=== PATIENT | female | born 1995 | race Caucasian/White ===

== ENCOUNTER 2019-12-01 11:00 | Day surgery (SDC) | payer OTHER ==
[2019-12-01] MEDS ORDERED: Lidocaine 2% 5 ML SDV INJECT ONE (12:00)
[2019-12-01] MEDS ORDERED: Iopamidol 200-M 10 ML vial ITHECAL ONE (12:00)
[2019-12-01] MEDS ORDERED: Ropivacaine 0.5% 5 MG/ML 30 ML SDV INJECT ONE (12:00)
[2019-12-01] MEDS ORDERED: Betamethasone Acetate/Betamethasone Sod Phosphate 30 MG/5 ML MDV EPIDUR ONE (12:00)
--- NOTE | 2019-12-01 17:12 | OR ---
SURGEON: Yanely Neff D.O. DATE OF PROCEDURE: 12/01/2019 PRIMARY SURGEON: Yanely Neff DO ASSISTANTS: OR staff present: 1. Braulio Lundberg RN. 2. Carlos Black RN. 3. Carlos Christie, RT. WOUND CLASS: I. PREOPERATIVE DIAGNOSES: 1. Lumbar radiculopathy. 2. Failed back surgery syndrome. 3. Chronic low back pain with right lower extremity radiculopathy. POSTOPERATIVE DIAGNOSES: 1. Lumbar radiculopathy. 2. Failed back surgery syndrome. 3. Chronic low back pain with right lower extremity radiculopathy. PROCEDURES PERFORMED: 1. Right transforaminal epidural steroid injection at S1. 2. Right transforaminal epidural steroid injection at S2. 3. Fluoroscopic guidance for needle placement. 4. Local with oral Valium for sedation. SCREENING QUESTIONS: The patient answered "no" to all of the following questions: 1. Are you allergic to iodine, Betadine or latex? 2. Do you have a bleeding disorder? 3. Do you have any joint replacements, heart valve replacements, or a pacemaker? 4. Are you allergic to anti-inflammatories or blood thinners? 5. Do you have any current local or systemic infections? MEDICAL NECESSITY: This is a patient with a history of chronic low back pain and lower extremity radicular pain in the above dermatomal pattern that comes in for the above diagnostic and therapeutic procedure. Pertinent positives and negatives for this suspected disease process along with the diagnostic findings and testing are in the patient's history and physical exam. The most salient feature includes radicular pain in the above dermatomal pattern. The patient had failed attempts at conservative therapy including physical therapy, nonsteroidal anti- inflammatory drugs, and other medications. No contraindications to perform this procedure including medical, no bleeding disorders or infections, no psychological, no antisocial personality disorder or active addiction disorder. There are no work-related issues, and, in general, the patient does not have any history of multiple prior interventions, surgeries or nerve blocks which have failed to return the patient to function. The patient's other symptoms to be treated include numbness, paresthesia, dysesthesia or hypoesthesia referred into the left lower extremity or any weakness in the involved myotome. This procedure is being performed in accordance with national guidelines as written by the [employer] (QIAN). DESCRIPTION OF PROCEDURE: The patient had the procedure thoroughly explained including risks, benefits and alternatives. Consent was signed in my clinic indicating understanding and willingness to proceed. The patient presented to [facility] [place] where the patient was escorted to the dressing room to disrobe and change into a hospital gown. Preoperative vital signs were taken and stable. The patient reported that Valium was taken prior to the procedure. The patient was brought to the procedure room and placed in the prone position on the table. A pillow was placed under the abdomen in order to flatten the lumbar lordosis. The back was prepped with ChloraPrep and sterilely draped. All personnel in the operating room were dressed in appropriate attire including surgical scrubs, head and shoe covers. This was to ensure sterility while in the treatment room. During the time fluoroscopy was in use, all personnel in the operating room wore lead cao with thyroid collars. Sterile technique was used during the procedure. The fluoroscope was placed for the right S1 and right S2 transforaminal epidural steroid injection. There was no sign of infection at the skin site for needle insertion. The skin was anesthetized with 2% lidocaine with a 27 gauge 1-1/2 inch needle. Then, a 22 gauge 3-1/2 inch spinal needle, advanced to the right S1 and right S2. Under direct fluoroscopic guidance needle position was verified in three views; AP, oblique and lateral, with 0.2 cubic centimeters increments of Isovue-200 dye. No intravascular flow pattern was observed under live fluoroscopy. Then 12 milligrams of Celestone was slowly injected after negative aspiration of heme, cerebrospinal fluid and no paresthesias were noted. The needle was cleared prior to removal from the skin. No adverse reactions were noted. The patient was brought to the recovery room awake and in good condition by my staff. The patient was monitored and discharge instructions were given after a brief stay in the recovery area. Both oral and written discharge and follow up instructions were given. The patient will follow up in the clinic in 3-4 weeks post procedure to evaluate the efficacy. The patient verbalized understanding including understanding of those signs and symptoms that would require emergency care and knows how to contact the office if there are any problems or questions in the meantime. PREOPERATIVE PAIN: 5/10. POSTOPERATIVE PAIN: 0/10. FOLLOWUP: In the Pain Clinic in 1 month. HOGLCHR / MODL /[id number]
== END 2019-12-01 13:09 ==
LOC: MW.SDS 11:00
PROVIDERS: ATTEND Anesthesiology
DX: M96.1 Postlaminectomy syndrome, not elsewhere classified (principal); G89.29 Other chronic pain; M47.26 Other spondylosis with radiculopathy, lumbar region; M51.16 Intervertebral disc disorders with radiculopathy, lumbar region; Z88.0 Allergy status to penicillin; Z88.2 Allergy status to sulfonamides
CPT/HCPCS: J0702; J2001; J2795; Q9966

== ENCOUNTER 2020-03-31 11:00 | Day surgery (SDC) | payer OTHER ==
[~2020-03-31 11:00] MED LIST: Betamethasone Acetate/Betamethasone Sod Phosphate 30 MG/5 ML MDV EPIDUR ONE; Iopamidol 200-M 10 ML vial ITHECAL ONE; Lidocaine 2% 5 ML SDV INJECT ONE; Ropivacaine 0.5% 5 MG/ML 30 ML SDV INJECT ONE
[2020-03-31] MEDS ORDERED: Iopamidol 200-M 10 ML vial ITHECAL ONE (12:00)
[2020-03-31] MEDS ORDERED: Lidocaine 2% 5 ML SDV INJECT ONE (12:00)
[2020-03-31] MEDS ORDERED: Betamethasone Acetate/Betamethasone Sod Phosphate 30 MG/5 ML MDV EPIDUR ONE (12:00)
[2020-03-31] MEDS ORDERED: Ropivacaine 0.5% 5 MG/ML 30 ML SDV INJECT ONE (12:00)
--- NOTE | 2020-03-31 19:22 | OR ---
SURGEON: Yanely Neff D.O. DATE OF PROCEDURE: 03/31/2020 PRIMARY SURGEON: Yanely Neff DO ASSISTANTS: OR staff present: 1. Kelly Watters RN. 2. Carlos Black RN. 3. Braulio Hdez. WOUND CLASS: I. PREOPERATIVE DIAGNOSIS: 1. Lumbar degenerative disk disease L5-S1 2. Lumbar spondylosis. 3. Right S1 radiculopathy. 4. Lumbar herniated disk, L5-S1. POSTOPERATIVE DIAGNOSES: 1. Lumbar degenerative disk disease L5-S1. 2. Lumbar spondylosis. 3. Right S1 radiculopathy. 4. Lumbar herniated disk, L5-S1. PROCEDURES PERFORMED: 1. Right S1 transforaminal epidural steroid injection. 2. Fluoroscopic guidance for needle placement. 3. Local with oral Valium for sedation. SCREENING QUESTIONS: The patient answered "no" to all of the following questions: 1. Are you allergic to iodine, Betadine or latex? 2. Do you have a bleeding disorder? 3. Do you have any joint replacements, heart valve replacements, or a pacemaker? 4. Are you allergic to anti-inflammatories or blood thinners? 5. Do you have any current local or systemic infections? DESCRIPTION OF PROCEDURE: The patient had the procedure thoroughly explained including risks, benefits and alternatives. Consent was signed in my clinic indicating understanding and willingness to proceed. The patient presented to [facility] [place] where the patient was escorted to the dressing room to disrobe and change into a hospital gown. Preoperative vital signs were taken and stable. The patient reported that Valium was taken prior to the procedure. The patient was brought to the procedure room and placed in the prone position on the table. A pillow was placed under the abdomen in order to flatten the lumbar lordosis. The back was prepped with ChloraPrep and sterilely draped. All personnel in the operating room were dressed in appropriate attire including surgical scrubs, head and shoe covers. This was to ensure sterility while in the treatment room. During the time fluoroscopy was in use, all personnel in the operating room wore lead cao with thyroid collars. Sterile technique was used during the procedure. The fluoroscope was placed for the right S1 transforaminal epidural steroid injection. There was no sign of infection at the skin site for needle insertion. The skin was anesthetized with 2% lidocaine with a 27 gauge 1-1/2 inch needle. Then, a 22 gauge 3-1/2 inch spinal needle, advanced to the right S1. Under direct fluoroscopic guidance needle position was verified in three views; AP, oblique and lateral, with 0.2 cubic centimeters increments of Isovue- 200 dye. No intravascular flow pattern was observed under live fluoroscopy. Then a misture of local and12 milligrams of Celestone was slowly injected after negative aspiration of heme, cerebrospinal fluid and no paresthesias were noted. The needle was cleared prior to removal from the skin. No adverse reactions were noted. The patient was brought to the recovery room awake and in good condition by my staff. The patient was monitored and discharge instructions were given after a brief stay in the recovery area. Both oral and written discharge and follow up instructions were given. The patient will follow up in the clinic in 3-4 weeks post procedure to evaluate the efficacy. The patient verbalized understanding including understanding of those signs and symptoms that would require emergency care and knows how to contact the office if there are any problems or questions in the meantime. PREOPERATIVE PAIN: 5/10. POSTOPERATIVE PAIN: 0/10. FOLLOWUP: In the Pain Clinic in 3 weeks. HOGAMY / ADAMS /[id number]
== END 2020-03-31 13:01 ==
LOC: MW.SDS 11:00
PROVIDERS: ATTEND Anesthesiology
DX: M51.16 Intervertebral disc disorders with radiculopathy, lumbar region (principal); M51.17 Intervertebral disc disorders with radiculopathy, lumbosacral region; M47.26 Other spondylosis with radiculopathy, lumbar region; M96.1 Postlaminectomy syndrome, not elsewhere classified; M79.18 Myalgia, other site; Z88.1 Allergy status to other antibiotic agents; Z88.2 Allergy status to sulfonamides; Z79.899 Other long term (current) drug therapy
CPT/HCPCS: 64483; J0702; J2001; J2795; Q9966